=== PATIENT | female | born 1985 | race Caucasian/White ===

== ENCOUNTER 2017-12-26 11:00 | Inpatient (IN) | payer MEDICAID ==
[2017-12-26] MEDS: LACTATED RINGER'S 1,000 ML IV (11:44)
[2017-12-26] MEDS ORDERED: CARBOPROST 250 MCG INJ IM ×2 (12:00→15:00)
[2017-12-26] MEDS ORDERED: OXYTOCIN 30 UNITS/LR 500 ML IV ×3 (12:00→15:00)
[2017-12-26] MEDS ORDERED: MISOPROSTOL 200 MCG TAB PR ×2 (12:00→15:00)
[2017-12-26] MEDS ORDERED: METHYLERGONOVINE 0.2 MG INJ IM ×2 (12:00→15:00)
[2017-12-26] MEDS ORDERED: CEFAZOLIN 2 GM/50 ML (PMX) 50 ML IV (12:00)
[2017-12-26 12:01] LABS: ADD MAN DIFF? NO
[2017-12-26 12:10] LABS: BASOPHILS % 0.3 % (0.0-2.0); EOSINOPHILS % 0.1 % (0.0-7.0); HEMATOCRIT 37.4 % (37.0-47.0); HEMOGLOBIN 12.8 g/dl (12.0-16.0); LYMPHOCYTES # 1.4 10^3/ul (0.8-2.9); LYMPHOCYTES % 18.4 % (15.0-51.0); MEAN CORPUSCULAR HGB CONC 34.2 g/dl (32.0-37.0); MEAN CORPUSCULAR VOLUME 93.5 fl (82.0-101.0); MEAN PLATELET VOLUME 11.5 fl (7.4-10.4); MONOCYTE # 0.5 10^3/ul (0.3-0.9); MONOCYTES % 6.4 % (0.0-11.0); NEUTROPHIL # 5.7 10^3/ul (1.6-7.5); NEUTROPHILS % 74.3 % (39.0-77.0); PLATELET COUNT 178 10^3/UL (140-415)
[2017-12-26 12:10] LABS: WHITE BLOOD COUNT 7.6 10^3/ul (4.8-10.8)
[2017-12-26 12:23] LABS: PARTIAL THROMBOPLASTIN TIME 26.5 Sec (25.0-35.0); PROTIME 12.2 Sec (11.9-14.9)
[2017-12-26] MEDS ORDERED: EPHEDrine SULFATE 50 MG/5 ML SYG (13:52)
[2017-12-26] MEDS ORDERED: morphine SULFATE/PF (10 MG/10 ML) INJ (13:52)
[2017-12-26] MEDS ORDERED: BUPIVACAINE 0.75%/DEXT (SPINAL) 2 ML INJ (13:53)
[2017-12-26] MEDS ORDERED: METOCLOPRAMIDE 10 MG INJ (13:53)
[2017-12-26] MEDS ORDERED: ONDANSETRON 4 MG INJ (13:53)
[2017-12-26] MEDS ORDERED: OXYTOCIN 10 UNIT INJ ×2 (13:53→14:17)
[2017-12-26 14:48] LABS: HEPATITIS B SURFACE ANTIGEN NEGATIVE (NEGATIVE)
[2017-12-26] MEDS: OXYTOCIN 30 UNITS/LR 500 ML IV ×2 (14:53→22:44)
[2017-12-26] MEDS ORDERED: NALOXONE (0.4 MG/ML) INJ IV (15:00)
[2017-12-26] MEDS ORDERED: ONDANSETRON 4 MG INJ IV (15:00)
[2017-12-26] MEDS ORDERED: DIPHENHYDRAMINE 50 MG INJ IV (15:00)
[2017-12-26] MEDS ORDERED: EPHEDrine SULFATE 50 MG/5 ML SYG IV (15:00)
[2017-12-26] MEDS ORDERED: morphine 2 MG INJ IV ×2 (15:00)
[2017-12-26] MEDS: IBUPROFEN 600 MG TAB PO (18:00)
[2017-12-26] MEDS: morphine SULFATE/PF (10 MG/10 ML) INJ SPINAL (18:11)
[2017-12-26] MEDS: LANOLIN 7 GM TUBE TOP (18:19)
[2017-12-26 22:13] LABS: RAPID PLASMA REAGIN NONREACTIVE (NR)
[2017-12-26] MEDS: CEFAZOLIN 2 GM/50 ML (PMX) 50 ML IV (22:39)
[2017-12-27] MEDS: LACTATED RINGER'S 1,000 ML IV ×3 (03:48→13:25)
[2017-12-27] MEDS: CEFAZOLIN 2 GM/50 ML (PMX) 50 ML IV ×2 (05:23→13:25)
[2017-12-27] MEDS: IBUPROFEN 600 MG TAB PO ×4 (06:00→18:05)
[2017-12-27] MEDS: KETOROLAC 30 MG INJ IV (08:54)
[2017-12-27 09:31] LABS: ADD MAN DIFF? NO
[2017-12-27 09:33] LABS: BASOPHILS % 0.2 % (0.0-2.0); EOSINOPHILS % 0.1 % (0.0-7.0); HEMATOCRIT 29.1 % (37.0-47.0); HEMOGLOBIN 9.8 g/dl (12.0-16.0); LYMPHOCYTES # 0.9 10^3/ul (0.8-2.9); LYMPHOCYTES % 10.1 % (15.0-51.0); MEAN CORPUSCULAR HEMOGLOBIN 31.5 pg (29.0-33.0); MEAN CORPUSCULAR HGB CONC 33.7 g/dl (32.0-37.0); MEAN CORPUSCULAR VOLUME 93.6 fl (82.0-101.0); MONOCYTE # 0.6 10^3/ul (0.3-0.9); MONOCYTES % 6.9 % (0.0-11.0); NEUTROPHIL # 7.6 10^3/ul (1.6-7.5); NEUTROPHILS % 82.2 % (39.0-77.0); PLATELET COUNT 138 10^3/UL (140-415); RED BLOOD COUNT 3.11 10^6/ul (4.20-5.40); RED CELL DISTRIBUTION WIDTH 13.2 % (11.5-14.5)
[2017-12-27 09:33] LABS: WHITE BLOOD COUNT 9.2 10^3/ul (4.8-10.8)
[2017-12-27] MEDS: CEFAZOLIN 2 GM/50 ML (PMX) 50 ML IVPB (13:30)
[2017-12-27] MEDS: OXYCODONE/ACETAMINOPHEN (5/325) TAB PO ×2 (17:09→21:14)
[2017-12-27] MEDS: FERROUS SULFATE (EC) 325 MG TAB PO (21:13)
[2017-12-28] MEDS: IBUPROFEN 600 MG TAB PO ×5 (00:12→23:29)
[2017-12-28] MEDS: FERROUS SULFATE (EC) 325 MG TAB PO ×2 (08:50→23:29)
[2017-12-28] MEDS: OXYCODONE/ACETAMINOPHEN (5/325) TAB PO ×2 (10:14→15:48)
[2017-12-29] MEDS: OXYCODONE/ACETAMINOPHEN (5/325) TAB PO ×2 (01:12→13:49)
[2017-12-29] MEDS: IBUPROFEN 600 MG TAB PO ×2 (05:42→11:13)
[2017-12-29] MEDS: FERROUS SULFATE (EC) 325 MG TAB PO (10:07)
== END 2017-12-29 14:55 | disposition home or self-care (01) | DRG 766 ==
LOC: L-D 11:00 → PP1 17:32
PROVIDERS: Obstetrics & Gynecology
PROC: 10D00Z1 Extraction of Products of Conception, Low, Open Approach (ICD-10-PCS; principal; 2017-12-27)
PROC: 0UL70ZZ Occlusion of Bilateral Fallopian Tubes, Open Approach (ICD-10-PCS; 2017-12-27)
PROC: 3E033VJ Introduction of Other Hormone into Peripheral Vein, Percutaneous Approach (ICD-10-PCS; 2017-12-27)
DX: O34.211 Maternal care for low transverse scar from previous cesarean delivery (principal); Z30.2 Encounter for sterilization; Z3A.39 39 weeks gestation of pregnancy; Z37.0 Single live birth
CPT/HCPCS: 85025; 85610; 85730; 86592; 86850; 86900; 86901; 87340; 88302; 94760; 99464